=== PATIENT | male | born 1965 | race Caucasian/White ===

== ENCOUNTER 2020-12-15 21:15 | Emergency (ER) | payer SELFPAY ==
[~2020-12-15] VITALS: Ht 170.2 cm; Wt 79.5 kg
[2020-12-15] MEDS ORDERED: INSLAN SQ (21:43)
[2020-12-15] MEDS ORDERED: METF-960 PO (21:43)
[2020-12-15] MEDS ORDERED: LISI-661 PO (21:43)
[2020-12-15] MEDS ORDERED: SIMV-259 PO (21:43)
[2020-12-16] MEDS ORDERED: ACETAMINOPHEN 325 MG TABLET PO ONE (02:00)
[2020-12-16 03:07] VITALS: BP 133/71
== END 2020-12-16 04:24 | disposition home or self-care (01) ==
LOC: EMS 21:15
DX: U07.1 COVID-19 (principal); M79.10 Myalgia, unspecified site; E11.9 Type 2 diabetes mellitus without complications; E78.00 Pure hypercholesterolemia, unspecified
CPT/HCPCS: Z7502; Z7610